=== PATIENT | female | born 1985 | race Caucasian/White ===

== ENCOUNTER 2018-09-03 10:19 | Emergency (ER) | payer OTHER ==
[2018-09-03 11:06] LABS: #Basophils 0.1 thou/uL (0.0-0.2); #Eosinphils 0.1 thou/uL (0.0-0.7); #Lymphocytes 1.7 thou/uL (1.20-3.40); #Monocytes 0.7 thou/uL (0.11-0.59); #Neutrophils 8.5 thou/uL (1.40-6.50); %Basophils 0.5 % (0.0-1.0); %Eosinophils 0.9 % (0.0-10.0); %Lymphocytes 15.4 % (21.0-51.0); %Monocytes 6.5 % (0.0-10.0); %Neutrophils 76.6 % (42.0-75.0); Hemoglobin 13.2 g/dL (12.0-16.0); Mean Corpuscular HGB CONC 32.7 g/dL (32.0-36.0); Mean Corpuscular Hemoglobin 28.7 pg (27.0-31.0); Mean Corpuscular Volume 87.8 fL (78.0-98.0); Mean Platelet Volume 8.6 fL (7.4-10.4); Platelet Count 220 thou/uL (130-400); RBC Distribution Width 11.4 % (11.5-14.5); White Blood Cell (WBC) Count 11.1 thou/uL (4.8-10.8)
[2018-09-03 11:54] LABS: ALT (SGPT) 15 U/L (8-55); AST (SGOT) 16 U/L (5-34); Albumin 4.2 g/dL (3.5-5.0); Alkaline Phosphatase 47 U/L (40-150); Anion Gap 13 mmol/L (10-20); BUN (Urea Nitrogen) 10 mg/dL (7.0-18.7); Bilirubin, Total 0.4 mg/dL (0.2-1.2); Calc. Creatinine Clearance 0 mL/min (70-130); Calcium 9.5 mg/dL (7.8-10.44); Carbon Dioxide 24 mmol/L (22-29); Chloride 101 mmol/L (98-107); Estimated GFR-MDRD Greater than 90; Globulin 2.9 g/dL (2.4-3.5); Glucose 76 mg/dL (70-105); Lipase 6 U/L (8-78); Potassium 3.5 mmol/L (3.5-5.1); Protein, Total 7.1 g/dL (6.0-8.3); Sodium 134 mmol/L (136-145)
== END 2018-09-03 11:39 | disposition left against medical advice (07) ==
LOC: ERS 10:19
DX: Z53.21 Procedure and treatment not carried out due to patient leaving prior to being seen by health care provider (principal)
CPT/HCPCS: 36415; 80053; 83690; 85025

== ENCOUNTER 2018-11-12 09:36 | Outpatient (CLI) | payer OTHER ==
--- NOTE | 2018-11-12 12:03 | ULT ---
STANDARD COMPLETE OB ULTRASOUND: HISTORY: Size and dates with anatomy. COMPARISON: Ultrasound from 2004. TECHNIQUE: Real-time, jennings-scale, color Doppler and spectral analysis of the gravid uterus was performed, transa bdominal approach. FINDINGS: A single viable intrauterine with average ultrasound age 19 weeks 0 days and estimated date of delivery 04/08/2019. Estimated weight 9 oz (13th percentile). BIOMETRY: BIPARIETAL DIAMETER: 4.22 cm (18 weeks 6 days). HEAD CIRCUMFERENCE: 15.79 cm (18 weeks 5 days). ABDOMINAL CIRCUMFERENCE: 13.46 cm (19 weeks 0 days). FEMUR LENGTH: 2.96 cm (19 weeks 1 day). heart rate documented at 146 beats per minute. Placenta location is anterior. No placenta previa. Amniotic fluid appears adequate. ANATOMY: Head, cerebellum, cisterna magna, lateral ventricles, stomach, kidneys, cord insertion, june dder, and cervical, thoracic, lumbar, and sacral spine, as well as lymphs, nodes, upper extremities, lower extremities, and three-vessel cord are all normal. Four-chamber heart not well seen. IMPRESSION: Normal single viable intrauterine . POS: [facility]
== END 2018-11-12 09:37 | disposition home or self-care (01) ==
LOC: BICULT 09:36
PROVIDERS: ATTEND Family Medicine
DX: O09.522 Supervision of elderly multigravida, second trimester (principal)
CPT/HCPCS: 76805

== ENCOUNTER 2018-11-23 15:05 | Outpatient (CLI) | payer OTHER ==
--- NOTE | 2018-11-23 16:13 | ULT ---
OB ULTRASOUND WITH FOLLOWUP 11/23/18 FINDINGS/IMPRESSION: A single live intrauterine gestation is seen with a heart rate of 149 beats per minute. The cer vical length measures 3.3 cm. The external and internal os are closed. Amniotic fluid appears within normal limits. POS: [facility]
== END 2018-11-23 15:06 | disposition home or self-care (01) ==
LOC: SCSULT 15:05
PROVIDERS: ATTEND Family Medicine
DX: O09.212 Supervision of pregnancy with history of pre-term labor, second trimester (principal)
CPT/HCPCS: 76816

== ENCOUNTER 2018-12-04 12:55 | Outpatient (CLI) | payer OTHER ==
--- NOTE | 2018-12-04 13:47 | ULT ---
LIMITED OB ULTRASOUND History: Evaluate cervical length. FINDINGS: Multiple longitudinal and transvers images of an intrauterine is obtained using a multihert z curvilinear transducer. Real-time, color flow and M-Mode sonography demonstrates a viable intrauter ine with the fetus is cephalic presentation. Amniotic fluid index measures 11.6 cm. Cervica l length measures 1.7 cm. No evidence of funneling seen in the upper aspect of the cervical canal. Cardiac activity is confirmed measuring 143 beats/minute. IMPRESSION: Viable IUP. Cervical length measures 1.7 cm. Code T POS: [facility]
== END 2018-12-04 12:56 | disposition home or self-care (01) ==
LOC: ULT 12:55
PROVIDERS: ATTEND Family Medicine
DX: O09.212 Supervision of pregnancy with history of pre-term labor, second trimester (principal)
CPT/HCPCS: 76816

== ENCOUNTER 2018-12-05 15:13 | Day surgery (SDC) | payer OTHER ==
[2018-12-05] MEDS ORDERED: Betamet Acet/Betamet Na Ph 30 MG/5 ML VIAL ONE (15:37)
[2018-12-05 16:11] VITALS: BMI 19.1
[2018-12-05] MEDS ORDERED: Azithromycin 500 MG in Sodium Chloride 0.9% 250 ML 250 ML IVPB SCH (17:30)
[2018-12-05] MEDS ORDERED: CEFAZOLIN 2 GM in Premix Bag 1 BAG IVPB SCH (17:30)
--- NOTE | 2018-12-05 17:30 | ULT ---
EXAM: LIMITED OB ULTRASOUND: 12/05/18 HISTORY: Evaluation for cervical length. Transabdominal and trans labial ultrasound examination is performed with evaluation of the cervical l ength. Cervical length of 1.2 - 1.4 cm is noted trans labially. There is some funneling of the lower uterine segment. Single viable intrauterine fetus in cephalic presentation. heart rate 140 beats per minute. IMPRESSION: Limited examination transabdominally and trans labially/transvaginally to evaluate for cervical juan th. Cervical length equals 1.2 - 1.4 cm with minimal funneling. Dr. Ralph from Labor and Delivery was present during the examination and made aware of the findings. POS: [facility]
== END 2018-12-05 19:20 | disposition short-term general hospital (02) ==
LOC: L&D/OP 15:13
PROVIDERS: ATTEND Family Medicine
DX: O99.89 Other specified diseases and conditions complicating pregnancy, childbirth and the puerperium (principal); R10.2 Pelvic and perineal pain; O99.332 Smoking (tobacco) complicating pregnancy, second trimester; F17.290 Nicotine dependence, other tobacco product, uncomplicated; Z3A.23 23 weeks gestation of pregnancy; Z88.0 Allergy status to penicillin
CPT/HCPCS: 76815; 96361; 96365; 96366; 96372; 99283; J0456; J0702; J7050

== ENCOUNTER 2019-02-19 09:41 | Day surgery (SDC) | payer OTHER ==
[2019-02-19 11:12] VITALS: BMI 21.2
--- NOTE | 2019-02-19 13:03 | ULT ---
ULTRASOUND OBSTETRICAL COMPLETE: UMBILICAL ARTERY DOPPLER DUPLEX: 02/19/19 HISTORY: 33-year-old female in third trimester with intrauterine growth restriction. TECHNIQUE: Nguyen scale images of fetus. Color flow and spectral analysis of umbilical artery. FINDINGS: number: [place]. lie: Vertex. Maternal cervix: Obscured. Placenta: Anterior. No placenta previa. Amniotic fluid volume: GAYE = 13.5 cm. heart rate: 153 bpm The following anatomy is visualized, with no evidence of anomalies: Bladder, diaphragm, three vessel cord, four chamber heart, stomach, and cord insertion. UMBILICAL ARTERY DOPPLER: Peak systolic velocity in cm/s, end diastolic velocity in cm/s, and S/D ratio: At placenta: 89, 45, 2.0. Mid cord: 73, 33, 2.3. At fetus: 75, 26, 2.9. biometry: Head circumference (HC): 30.3 cm 33w 2d Biparietal diameter (BPD): 8.3 cm 33w 4d Abdominal circumference (AC): 27.5 cm 31w 4d Femur length (FL): 6.4 cm 33w 1d Average ultrasound age (AUA): 32w 6d Estimated date of delivery (JAYCOB): 04/10/2019 Last menstrual period (LMP): 06/27/18 Gestational age by LMP: 33w 6d Estimated weight (EFW): 1963 g +/- 291 g (4 lb. 5 oz +/- 10 oz.). IMPRESSION: 1. Live third trimester intrauterine gestation. 2. Estimated gestational age of 32 weeks, 6 days. 3. Vertex lie. 4. Umbilical artery measurements as given above. [place] paredes [] POS: [facility]
--- NOTE | 2019-02-19 13:04 | ULT ---
BIOPHYSICAL PROFILE: 02/19/19 HISTORY: Third trimester intrauterine growth retardation for 33-year-old female. FINDINGS: breathin tone: 2 movement: 2 Amniotic fluid volume: 2 IMPRESSION: Normal biophysical profile score of 8/8, excluding the non-stress test. jn []
== END 2019-02-19 12:15 | disposition home health service (06) ==
LOC: L&D/OP 09:41
PROVIDERS: ATTEND Family Medicine
DX: O36.5930 Maternal care for other known or suspected poor fetal growth, third trimester, not applicable or unspecified (principal); O99.333 Smoking (tobacco) complicating pregnancy, third trimester; Z3A.32 32 weeks gestation of pregnancy; Z88.0 Allergy status to penicillin
CPT/HCPCS: 59025; 76700; 76815; 76819; 99282

== ENCOUNTER 2019-03-07 12:07 | Day surgery (SDC) | payer OTHER ==
[2019-03-07 14:29] VITALS: BMI 20.7
[2019-03-07 15:24] VITALS: BP 94/62; TEMP 99.2
[2019-03-07] MEDS ORDERED: Famotidine 20 MG TAB PO SCH (21:00)
== END 2019-03-07 19:25 | disposition home or self-care (01) ==
LOC: L&D/OP 12:07
PROVIDERS: ATTEND Family Medicine
DX: O34.33 Maternal care for cervical incompetence, third trimester (principal); Z3A.36 36 weeks gestation of pregnancy; Z88.0 Allergy status to penicillin
CPT/HCPCS: 59899; 99283

== ENCOUNTER 2019-03-18 13:44 | Inpatient (IN) | payer OTHER ==
[2019-03-18] MEDS ORDERED: Methylergonovine 0.2 MG/ML VIAL IM PRN (14:42)
[2019-03-18] MEDS ORDERED: Diphenoxylate HCl/Atropine Tablet PO PRN (14:42)
[2019-03-18] MEDS ORDERED: Promethazine HCl 25 MG/ML VIAL IM PRN ×2 (14:42→19:00)
[2019-03-18] MEDS ORDERED: Butorphanol Tartrate 1 MG/ML VIAL SLOW IVP PRN (14:42)
[2019-03-18] MEDS ORDERED: Lidocaine 1% (PF) 30 ML VIAL SC PRN (14:42)
[2019-03-18] MEDS ORDERED: Carboprost 250 MCG/ML AMP IM PRN (14:42)
[2019-03-18] MEDS ORDERED: Ibuprofen 800 MG TAB PO PRN (14:42)
[2019-03-18] MEDS ORDERED: hydrALAZINE 20 MG/ML VIAL SLOW IVP PRN ×2 (14:42→22:49)
[2019-03-18] MEDS ORDERED: HYDROcodone/Acetaminophen 5/325 mg Tablet PO PRN (14:42)
[2019-03-18] MEDS ORDERED: Misoprostol 200 MCG TAB PR PRN (14:42)
[2019-03-18] MEDS ORDERED: Lactated Ringer's 1,000 ML IV SCH (14:45)
[2019-03-18] MEDS ORDERED: NS w/ Oxytocin 10 units 500 ML IV SCH ×2 (14:45)
[2019-03-18] MEDS ORDERED: Penicillin G Potassium 5 MILL.UNITS in Sodium Chloride 0.9% 100 ML IVPB SCH (15:00)
[2019-03-18] MEDS: Ondansetron PF 4 MG/2 ML Vial IVP PRN ×2 (15:06→21:12)
[2019-03-18 15:10] LABS: Hemoglobin 10.5 g/dL (12.0-16.0); Mean Corpuscular HGB CONC 33.6 g/dL (32.0-36.0); Mean Corpuscular Hemoglobin 30.1 pg (27.0-31.0); Mean Corpuscular Volume 89.5 fL (78.0-98.0); Mean Platelet Volume 11.1 fL (7.4-10.4); Platelet Count 193 thou/uL (130-400); RBC Distribution Width 12.5 % (11.5-14.5); Red Blood Cell (RBC) Count 3.48 mill/uL (4.20-5.40); White Blood Cell (WBC) Count 23.7 thou/uL (4.8-10.8)
[2019-03-18 15:27] VITALS: BMI 21.2
[2019-03-18 15:47] LABS: HBSAg Index 0.23 S/CO (0-0.99); Hep B Surf Ag Non-Reactive S/CO (NonReactive)
[2019-03-18 15:48] LABS: Syphilis Antibody Nonreactive (Nonreactive); Syphilis Antibody Index 0.03 S/CO (<1.00 Non-Reactive)
[2019-03-18] MEDS ORDERED: Calcium Carbonate 500 MG ChewTAB PO PRN (16:29)
[2019-03-18] MEDS ORDERED: Fentanyl 4 mcg/Bup 0.1% Cadd 100 ML ONE (17:34)
[2019-03-18] MEDS ORDERED: Acetaminophen 325 MG TAB PO PRN (19:00)
[2019-03-18] MEDS ORDERED: Fentanyl 4 mcg/Bupivacaine 0.1% Cassette 100 ML EPIDURAL SCH (19:00)
[2019-03-18] MEDS ORDERED: Penicillin G 2.5 MILL.units 2.5 MILL.UNITS in Premix Bag 1 BAG IVPB SCH (19:00)
[2019-03-18] MEDS ORDERED: Communication Order-Pharmacy FS SCH (19:00)
[2019-03-18] MEDS ORDERED: Lactated Ringer's 500 ML IV PRN (19:00)
[2019-03-18] MEDS ORDERED: Naloxone HCl 0.4 mg/ml Vial IVP PRN ×2 (19:00)
[2019-03-18] MEDS ORDERED: ePHEDrine/0.9% NaCl/PF SYRINGE 50 mg/10 ml SLOW IVP PRN (19:00)
[2019-03-18] MEDS ORDERED: Ondansetron PF 4 MG/2 ML Vial IVP PRN ×2 (19:00→22:49)
[2019-03-18] MEDS ORDERED: diphenhydrAMINE 50 MG/ML VIAL IVP PRN (19:00)
[2019-03-18] MEDS: NS / Oxytocin 40 units/1000ml 1,000 ML IV PRN ×2 (19:40→21:14)
[2019-03-18] MEDS ORDERED: Bupivacaine/Epinephrine 0.25% 30 ML VIAL ONE (21:00)
[2019-03-18] MEDS ORDERED: Misoprostol 200 MCG TAB PO SCH (21:30)
[2019-03-18] MEDS ORDERED: Bisacodyl 10 MG SUPP PR PRN (22:49)
[2019-03-18] MEDS ORDERED: Milk Of Magnesia 30 ML UDCUP PO PRN (22:49)
[2019-03-18] MEDS ORDERED: NS / Oxytocin 40 units/1000ml 1,000 ML IV SCH (22:49)
[2019-03-18] MEDS ORDERED: Lanolin Ointment 7 GM TUBE TOP PRN (22:49)
[2019-03-18] MEDS ORDERED: Ibuprofen 800 MG TAB PO SCH (23:00)
[2019-03-19] MEDS: HYDROcodone/Acetaminophen 5/325 mg Tablet PO PRN ×5 (01:19→19:35)
[2019-03-19] MEDS: Calcium Carbonate 500 MG ChewTAB PO PRN ×2 (05:21→19:40)
[2019-03-19] MEDS: Ibuprofen 800 MG TAB PO SCH ×3 (05:28→21:56)
[2019-03-19 06:35] LABS: Hemoglobin 8.6 g/dL (12.0-16.0); Mean Corpuscular HGB CONC 32.9 g/dL (32.0-36.0); Mean Corpuscular Hemoglobin 29.8 pg (27.0-31.0); Mean Corpuscular Volume 90.8 fL (78.0-98.0); Mean Platelet Volume 10.4 fL (7.4-10.4); Platelet Count 138 thou/uL (130-400); RBC Distribution Width 12.3 % (11.5-14.5); Red Blood Cell (RBC) Count 2.87 mill/uL (4.20-5.40); White Blood Cell (WBC) Count 24.9 thou/uL (4.8-10.8)
[2019-03-19] MEDS ORDERED: Sodium Chloride 0.9% 10 ML ONE (08:47)
[2019-03-19] MEDS: Docusate Calcium (SURFAK) 240 MG CAP PO SCH ×3 (08:51→21:56)
[2019-03-19] MEDS: Prenatal Vitamin 1 TAB PO SCH (08:51)
[2019-03-19] MEDS: Ferrous Sulfate 325 MG TAB PO SCH ×2 (08:53→17:58)
[2019-03-19] MEDS ORDERED: Adacel (T-DAP) 0.5 ML SYRINGE IM ONE (09:00)
[2019-03-20] MEDS: HYDROcodone/Acetaminophen 5/325 mg Tablet PO PRN (03:56)
[2019-03-20] MEDS: Ibuprofen 800 MG TAB PO SCH (06:34)
[2019-03-20] MEDS: Prenatal Vitamin 1 TAB PO SCH (07:54)
[2019-03-20] MEDS: Ferrous Sulfate 325 MG TAB PO SCH (07:54)
[2019-03-20 08:36] VITALS: BP 108/65; TEMP 97.7
== END 2019-03-20 09:30 | disposition home or self-care (01) | DRG 807 ==
LOC: L&D 13:44 → 3SW 22:19
PROVIDERS: ADMIT Family Medicine; ATTEND Family Medicine
PROC: 10E0XZZ Delivery of Products of Conception, External Approach (ICD-10-PCS; principal; 2019-03-18)
PROC: 0HQ9XZZ Repair Perineum Skin, External Approach (ICD-10-PCS; 2019-03-18)
DX: O34.33 Maternal care for cervical incompetence, third trimester (principal); Z37.0 Single live birth; O26.872 Cervical shortening, second trimester; O99.824 Streptococcus B carrier state complicating childbirth; Z3A.37 37 weeks gestation of pregnancy; O69.81X0 Labor and delivery complicated by cord around neck, without compression, not applicable or unspecified; O70.0 First degree perineal laceration during delivery
CPT/HCPCS: 36415; 85027; 85461; 86780; 86850; 86870; 86900; 86901; 86905; 87340; 90384; 96372; J0595; J2405; J2540; J2590; J3490

== ENCOUNTER 2021-03-09 16:13 | Emergency (ER) | payer OTHER ==
[2021-03-09] MEDS ORDERED: Ibuprofen 200 MG TAB ONE (17:24)
== END 2021-03-09 17:22 | disposition home or self-care (01) ==
LOC: ERS 16:13
DX: S62.653A Nondisplaced fracture of middle phalanx of left middle finger, initial encounter for closed fracture (principal); X50.9XXA Other and unspecified overexertion or strenuous movements or postures, initial encounter; F17.210 Nicotine dependence, cigarettes, uncomplicated

== ENCOUNTER 2021-10-08 12:24 | Outpatient (CLI) | payer OTHER | END 2021-10-08 12:25 | disposition home or self-care (01) | LOC: BICULT 12:24 | PROVIDERS: ATTEND Physician Assistant Medical | DX: R10.11 Right upper quadrant pain (principal); R11.0 Nausea; R19.7 Diarrhea, unspecified | CPT/HCPCS: 76705 ==

== ENCOUNTER 2022-12-25 13:53 | Emergency (ER) | payer OTHER ==
[2022-12-25] MEDS ORDERED: Acetaminophen/Codeine 30-300mg Tablet ONE (15:46)
[2022-12-25] MEDS ORDERED: Ibuprofen 200 MG TAB ONE (15:46)
== END 2022-12-25 15:05 | disposition home or self-care (01) ==
LOC: ERS 13:53
DX: M54.50 Low back pain, unspecified (principal); M54.6 Pain in thoracic spine; F17.210 Nicotine dependence, cigarettes, uncomplicated
CPT/HCPCS: 99283